=== PATIENT | female | born 1955 | race Caucasian/White ===

== ENCOUNTER 2017-06-30 13:23 | Observation (INO) | payer OTHER ==
[~2017-06-30] VITALS: Ht 160 cm; Wt 54.2 kg
[2017-06-30 14:44] LABS: EOSINOPHIL (%) 0.6 % (0-5); EOSINOPHIL COUNT 0.1 K/uL (0-0.3); HEMATOCRIT 39.9 % (36.0-46.0); IMMATURE GRANULOCYTE (%) 0.4 % (0.0-0.7); INSTRUMENT ABS NEUTROPHIL CT 5.2 K/uL; LYMPHOCYTE COUNT 1.9 K/uL (1.0-2.8); MCHC 33.8 G/DL (30.0-36.0); MCV 91.5 FL (83-99); MEAN PLAT.VOLUME 8.5 uM^3 (9.5-12.4); MONOCYTE (%) 6.5 % (3-12); MONOCYTE COUNT 0.5 K/uL (0-0.8); NEUTROPHIL (%) 67.6 % (45-76); NEUTROPHIL COUNT 5.2 K/uL (1.8-6.4); PLATELET COUNT 227 K/uL (156-360); RBC DIS.WIDTH-CV 12.1 % (11.8-14.6); RBC DIS.WIDTH-SD 40.7 % (39-53); RED BLOOD COUNT 4.36 M/uL (3.80-5.20); WHITE BLOOD COUNT 7.7 K/uL (4.1-10.2)
[2017-06-30 14:53] LABS: CHLORIDE 102 mEq/L (99-109); POTASSIUM 4.4 mEq/L (3.7-5.4); SODIUM 139 mEq/L (136-147)
[2017-06-30 14:55] LABS: GLUCOSE 97 mg/dL (70-99)
[2017-06-30 14:56] LABS: ANION GAP 11 MEQ/L (2-14)
[2017-06-30 14:59] LABS: GFR ESTIMATE (CALCULATED) > 59 mL/min/; UREA NITROGEN (BUN) 11 mg/dL (9-23)
[2017-06-30 15:23] LABS: ADD MIUA? YES; BILIRUBIN NEGATIVE; BLOOD MODERATE; COLOR STRAW ((YELLOW)); GLUCOSE (STRIP) NEGATIVE; KETONES 5; LEUKOCYTES LARGE; NITRITE NEGATIVE; PROTEIN (STRIP) NEGATIVE; SPECIFIC GRAVITY 1.018 (1.000-1.030); UROBILINOGEN 0.2 MG/DL (0.2-1.0)
[2017-06-30 15:31] LABS: BACTERIA RARE /HPF; EPITHELIAL CELLS RARE /HPF; MUCUS NONE SEEN /LPF; RED BLOOD CELLS 0-5 /HPF (0-5); UCUL ADDED? YES
[2017-06-30] MEDS ORDERED: TYLENOL EXTRA500 MG PO (19:27)
[2017-06-30] MEDS ORDERED: SUPER CALCIUM600 MG PO (19:29)
[2017-06-30 21:25] VITALS: BP 162/82
[2017-06-30] MEDS ORDERED: PERCOCET 5/31 TABLET PO (23:14)
[2017-06-30] MEDS ORDERED: COLACE100 MG PO (23:14)
[2017-07-01 03:50] VITALS: BP 113/55
[2017-07-01 07:01] VITALS: BP 122/59
[2017-07-01 10:49] VITALS: BP 123/58
[2017-07-01 15:07] VITALS: BP 110/53
== END 2017-07-01 16:30 | disposition home or self-care (01) ==
LOC: EME 13:23 → EDOF 15:57 → 2EASTP 15:57 → EDOF 15:57 → ENRESERV 16:02 → CANRESERV 16:02 → ENRESERV 16:10 → 2EASTP 21:16 → ENRESERV 23:13 → CANRESERV 23:13 → 2EASTP 07-01 16:30
PROVIDERS: Emergency Medicine
PROC: 0DTJ4ZZ Resection of Appendix, Percutaneous Endoscopic Approach (ICD-10-PCS; principal; 2017-06-30)
DX: K35.80 Unspecified acute appendicitis (principal); Z88.2 Allergy status to sulfonamides
CPT/HCPCS: 80048; 81003; 85025; 87086; 88304; 99281; 99285; G0378; J0330; J0744; J1170; J1885; J2175; J2405; J2710; J2765; J3010; J7030; J7120; S0030